=== PATIENT | female | born 1960 | race Caucasian/White ===

== ENCOUNTER → 2019-10-02 | Outpatient (CLI) | payer BC ==
--- NOTE | 2019-10-02 18:38 | Diagnostic Imaging Report ---
EXAMINATION: Magnetic resonance imaging of the right ankle without contrast. DATE: October 02, 2019. COMPARISON: None. HISTORY: 59-year-old female, right ankle pain. Injury. TECHNIQUE: Magnetic Resonance Imaging sequences were performed of the ankle without contrast. [< >] FINDINGS: TENDONS AND LIGAMENTS: The Achilles tendon is unremarkable. The posterior flexor tendons - tibialis posterior, flexor digitorum longus, flexor hallucis longus - are intact. The peroneal tendons - peroneus longus and peroneus brevis - are intact. The anterior extensor tendons - tibialis anterior, extensor hallucis longus and extensor digitorum longus tendons - are intact. The anterior and posterior syndesmotic ligaments are intact. The anterior talofibular, posterior talofibular, calcaneofibular and deltoid ligaments are intact. There are very small focal areas of altered contour of the medial cord of the plantar fascia which likely relate to very small plantar fibromas. One such example is on coronal image 30 measuring 6 x 2 mm in size. There is no tear of the plantar fascia or evidence of active plantar fasciitis. JOINTS: The ankle mortise is intact. The subtalar and visualized joints of the mid-foot are intact. 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 There are minimal adjacent marrow signal changes which may relate to findings of abnormal motion. BONE: There is no acute fracture, bone contusion or evidence of osteonecrosis. The talar dome is intact. BURSAE AND SOFT TISSUES: The bursae and soft tissues surrounding the ankle are unremarkable. IMPRESSION: 1. Intact ankle ligaments and tendons. 2. No acute fracture or bone contusion. 3. Very tiny probable plantar fibromas. The plantar fascia is otherwise intact. 4. 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 Dictated by: Dictated on workstation # [id number]
== END ==
LOC: RAD 14:22
PROVIDERS: ATTEND Orthopaedic Surgery
DX: S93.491A Sprain of other ligament of right ankle, initial encounter (principal)
CPT/HCPCS: 73721

== ENCOUNTER 2020-04-15 06:56 | Emergency (ER) | payer BC, OTHER ==
[~2020-04-15] VITALS: Ht 157.5 cm; Wt 72.6 kg
[2020-04-15] MEDS ORDERED: ASPIRIN 81 MG CHEW (CHILDREN'S ASA) PO ONE (07:15)
[2020-04-15] MEDS ORDERED: NITROGLYCERIN 0.4 MG SL TABS BTL 25'S SL PRN (07:45)
[2020-04-15 08:05] LABS: BASOPHILS % (AUTO) 0 % (0-10); EOSINOPHILS % (AUTO) 0 % (0-10); HEMATOCRIT 39 % (35-52); HEMOGLOBIN 12.9 g/dL (11.5-16.0); LYMPHOCYTES % (AUTO) 17 % (12-44); MEAN CORPUSCULAR HEMOGLOBIN 30 pg (25-34); MEAN CORPUSCULAR HGB CONC 33 g/dL (32-36); MEAN CORPUSCULAR VOLUME 89 fL (80-99); MEAN PLATELET VOLUME 9.5 fL (9.0-12.2); MONOCYTES # (AUTO) 0.4 10^3/uL (0.0-1.0); MONOCYTES % (AUTO) 8 % (0-12); NEUTROPHILS # (AUTO) 4.3 10^3/uL (1.8-7.8); NEUTROPHILS % (AUTO) 75 % (42-75); PLATELET COUNT 239 10^3/uL (130-400); WHITE BLOOD COUNT 5.7 10^3/uL (4.3-11.0)
--- NOTE | 2020-04-15 08:17 | ED Cardiac General ---
History of Present Illness General Chief Complaint: Chest Pain Stated Complaint: CHEST TIGHTNESS,COVID+ Nursing Triage Note: PT BROUGHT IN BY [facility] FROM HOME WITH COMPLAINT OF CHEST TIGHTNESS. PT TESTED POSITIVE ON SATURDAY FOR COVID. STATES SYMPTOMS STARTED . Source: patient, EMS History of Present Illness Date Seen by Provider: Apr 15, 2020 Time Seen by Provider: 07:03 Initial Comments PT ARRIVES VIA EMS FROM HOME PT IS COVID-19 + PT STATES SHE BEGAN GETTING SICK ON WITH COVID-19 SYMPTOMS HAS HAD BODY ACHES, LOSS OF TASTE/SMELL, SLIGHT COUGH, MILD SHORTNESS OF BREATH, FEVER, NAUSEA/VOMITING. PT STATES SHE HAD 2 NEGATIVE TESTS, AND THEN TESTED + FOR COVID-19 ON Saturday04/11/19. STATES SHE WAS ALSO DX WITH PNEUMONIA STATES SHE WAS PRESCRIBED DOXYCYCLINE 2 DAYS AGO, BUT COULD NOT KEEP IT DOWN, SO WAS SWITCHED TO AMOXIL YESTERDAY AND HAS ONLY HAD 1 DOSE. DOES NOT HAVE NAUSEA AT THIS TIME HAS NOT BEEN PRESCRIBED ANY OTHER MEDICATIONS. PT STILL WITH FEVER UP TO 101 PT STATES CHEST PAIN WOKE HER UP AT 0400 THIS AM PAIN IS IN CENTER OF CHEST, DOES NOT RADIATE PAIN /10 AT HOME, 7/10 NOW. NO TREATMENT PRIOR TO ARRIVAL NOTHING WORSENS OR IMPROVES PAIN NO PALPITATIONS NO DIZZINESS OR SYNCOPE NO HISTORY OF SIMILAR. PT DENIES ANY HISTORY OF CARDIAC OR RESPIRATORY PROBLEMS STATES HER ONLY MEDICAL PROBLEMS ARE ALLERGIES AND CHRONIC NECK PAIN PT IS LIFETIME NON-SMOKER, NON-DRINKER. PT STATES HER ALSO HAS HAD COVID-19 AND WAS HOSPITALIZED AT [facility], THEN TRANSFERRED HERE, AND IS NOW AT HOME AND DOING BETTER. NTG SL AIRCRAFT INSTRUMENT ENGINEER: No ASA po AIRCRAFT INSTRUMENT ENGINEER: No PCP: GLORIA DE LA GARZA / DR. ARROYO AT [facility]. Allergies and Home Medications Allergies Coded Allergies: No Known Drug Allergies (Unverified , 09/29/12) Home Medications Azithromycin 500 Mg Tablet, 500 MG PO DAILY Prescribed by: ADALID NAM on 04/15/20 124 Cefdinir 300 Mg Capsule, 300 MG PO BID Prescribed by: ADALID NAM on 04/15/20 124 Dexamethasone 6 Mg Tablet, 6 MG PO DAILY Prescribed by: ADALID NAM on 04/15/20 124 Famotidine 40 Mg Tablet, 40 MG PO DAILY Prescribed by: ADALID NAM on 04/15/20 1247 Ondansetron 8 Mg Tab.rapdis, 8 MG PO Q6H Prescribed by: ADALID NAM on 04/15/20 1247 Patient Home Medication List Home Medication List Reviewed: Yes Review of Systems Review of Systems Constitutional: see HPI, fever EENTM: See HPI Respiratory: See HPI Cardiovascular: See HPI, Chest Pain; Denies Edema, Denies Irregular Heart Rate, Denies Lightheadedness, Denies Palpitations, Denies Syncope Gastrointestinal: See HPI; Denies Abdominal Pain; Nausea, Poor Appetite, Vomiting Genitourinary: No Symptoms Reported Musculoskeletal: see HPI (BODY ACHES) Skin: no symptoms reported Psychiatric/Neurological: No Symptoms Reported Endocrine: No Symptoms Reported Hematologic/Lymphatic: No Symptoms Reported Past Uxjsauz-Xxnigy-Owkybd Hx Past Med/Social Hx: Reviewed and Corrections made Patient Social History Alcohol Use: Denies Use Recreational Drug Use: No Smoking Status: Never a Smoker Recent Foreign Travel: No Contact w/Someone Who Travel: No Recent Infectious Disease Expo: No Recent Hopitalizations: No Physical Abuse: No Sexual Abuse: No Mistreated: No Fear: No Immunizations Up To Date Tetanus Booster (TDap): Unknown PED Vaccines UTD: Yes Seasonal Allergies Seasonal Allergies: Yes Past Medical History Surgeries: Yes (BILATERAL BREAST REDUCTION; RIGHT SHOULDER SURGERY) Breast, Gallbladder, Orthopedic, Tubal Ligation Respiratory: No Cardiac: No Neurological: No RN IMMUNOLOGY History: Tubal Ligation, Menopausal Genitourinary: No Gastrointestinal: No Musculoskeletal: Yes (CHRONIC NECK PAIN; RIGHT SHOULDER SURGERY) Degenerate Disk Disease Endocrine: No HEENT: No Cancer: No Psychosocial: No Integumentary: No Blood Disorders: No Physical Exam Vital Signs Vital Signs - First Documented 04/15/20 04/15/20 07:10 13:54 Temp 36.8 Pulse 79 Resp 14 B/P (MAP) 128/73 (91) Pulse Ox 98 O2 Delivery Room Air Capillary Refill : Less Than 3 Seconds Height, Weight, BMI Height: '" Weight: lbs. oz. kg; 29.00 BMI Method: General Appearance: No Apparent Distress, WD/WN, Other (DOES NOT APPEAR ACUTELY ILL OR TO BE IN ANY DISCOMFORT OR DISTRESS) HEENT: PERRL/EOMI, Normal ENT Inspection Neck: Full Range of Motion, Normal Inspection, Non Tender, Supple; No Carotid Bruit, No JVD Respiratory: Chest Non Tender, Normal Breath Sounds (BUT DIMINISHED IN BASES), No Accessory Muscle Use, No Respiratory Distress Cardiovascular: Regular Rate, Rhythm, No Edema, No JVD, No Murmur, Normal Peripheral Pulses Gastrointestinal: Non Tender, Soft Extremity: Normal Capillary Refill, Normal Inspection, Normal Range of Motion, Non Tender, No Calf Tenderness, No Pedal Edema Neurologic/Psychiatric: Alert, Oriented x3, No Motor/Sensory Deficits, Normal Mood/Affect, cutter operator tile II-XII Norm as Tested Skin: Normal Color, Warm/Dry Focused Exam Lactate Level 04/15/20 07:44: Lactic Acid Level 0.76 Lactic Acid Level Laboratory Tests Test 04/15/20 07:44 Lactic Acid Level 0.76 MMOL/L (0.50-2.00) Progress/Results/Core Measures Results/Orders Lab Results Laboratory Tests Test 04/15/20 07:44 04/15/20 11:10 04/15/20 11:57 Range/Units White Blood Count 5.7 4.3-11.0 10^3/uL Red Blood Count 4.32 3.80-5.11 10^6/uL Hemoglobin 12.9 11.5-16.0 g/dL Hematocrit 39 35-52 % Mean Corpuscular Volume 89 80-99 fL Mean Corpuscular Hemoglobin 30 25-34 pg Mean Corpuscular Hemoglobin Concent 33 32-36 g/dL Red Cell Distribution Width 12.2 10.0-14.5 % Platelet Count 239 130-400 10^3/uL Mean Platelet Volume 9.5 9.0-12.2 fL Immature Granulocyte % (Auto) 1 % Neutrophils (%) (Auto) 75 42-75 % Lymphocytes (%) (Auto) 17 12-44 % Monocytes (%) (Auto) 8 0-12 % Eosinophils (%) (Auto) 0 0-10 % Basophils (%) (Auto) 0 0-10 % Neutrophils # (Auto) 4.3 1.8-7.8 10^3/uL Lymphocytes # (Auto) 1.0 1.0-4.0 10^3/uL Monocytes # (Auto) 0.4 0.0-1.0 10^3/uL Eosinophils # (Auto) 0.0 0.0-0.3 10^3/uL Basophils # (Auto) 0.0 0.0-0.1 10^3/uL Immature Granulocyte # (Auto) 0.0 0.0-0.1 10^3/uL Erythrocyte Sedimentation Rate 31 H 0-30 MM/HR Prothrombin Time 14.0 12.2-14.7 SEC INR Comment 1.0 0.8-1.4 Activated Partial Thromboplast Time 29 24-35 SEC D-Dimer 0.55 H 0.00-0.49 UG/ML Sodium Level 138 135-145 MMOL/L Potassium Level 3.8 3.6-5.0 MMOL/L Chloride Level 104 98-107 MMOL/L Carbon Dioxide Level 23 21-32 MMOL/L Anion Gap 11 5-14 MMOL/L Blood Urea Nitrogen 12 7-18 MG/DL Creatinine 0.70 0.60-1.30 MG/DL Estimat Glomerular Filtration Rate > 60 BUN/Creatinine Ratio 17 Glucose Level 90 70-105 MG/DL Lactic Acid Level 0.76 0.50-2.00 MMOL/L Calcium Level 8.4 L 8.5-10.1 MG/DL Corrected Calcium 8.6 8.5-10.1 MG/DL Magnesium Level 2.0 1.6-2.4 MG/DL Total Bilirubin 0.4 0.1-1.0 MG/DL Aspartate Amino Transf (AST/SGOT) 42 H 5-34 U/L Alanine Aminotransferase (ALT/SGPT) 28 0-55 U/L Alkaline Phosphatase 50 40-136 U/L Lactate Dehydrogenase 279 H 125-220 U/L Total Creatine Kinase 49 29-168 U/L Creatine Kinase MB 0.6 <6.6 NG/ML Myoglobin 53.4 10.0-92.0 NG/ML Troponin I < 0.028 < 0.028 <0.028 NG/ML C-Reactive Protein High Sensitivity 2.49 H 0.00-0.50 MG/DL B-Type Natriuretic Peptide < 10.0 <100.0 PG/ML Total Protein 6.3 L 6.4-8.2 GM/DL Albumin 3.7 3.2-4.5 GM/DL Amylase Level 71 25-125 U/L Lipase 81 H 8-78 U/L Procalcitonin 0.02 <0.10 NG/ML Urine Color YELLOW Urine Clarity CLEAR Urine pH 6.0 5-9 Urine Specific Steen <=1.005 1.016-1.022 Urine Protein NEGATIVE NEGATIVE Urine Glucose (UA) NEGATIVE NEGATIVE Urine Ketones 1+ H NEGATIVE Urine Nitrite NEGATIVE NEGATIVE Urine Bilirubin NEGATIVE NEGATIVE Urine Urobilinogen 0.2 < = 1.0 MG/DL Urine Leukocyte Esterase NEGATIVE NEGATIVE Urine RBC (Auto) NEGATIVE NEGATIVE Urine RBC RARE /HPF Urine WBC RARE /HPF Urine Squamous Epithelial Cells 2-5 /HPF Urine Crystals NONE /LPF Urine Bacteria NEGATIVE /HPF Urine Casts NONE /LPF Urine Mucus NEGATIVE /LPF Urine Culture Indicated NO Micro Results Microbiology 04/15/20 Blood Culture - Preliminary, Resulted No growth 04/15/20 Influenza Types A,B Antigen (NATTY) - Final, Complete 04/15/20 Blood Culture - Preliminary, Resulted No growth My Orders Orders - ADALID NAM DO Ed Iv/Invasive Line Start (04/15/20 07:03) Ekg Tracing (04/15/20 07:03) O2 (04/15/20 07:03) Monitor-Rhythm Ecg Trace Only (04/15/20 07:03) Chest 1 View, Ap/Pa Only (04/15/20 07:03) Amylase (04/15/20 07:03) BNP (04/15/20 07:03) Cbc With Automated Diff (04/15/20 07:03) Comprehensive Metabolic Panel (04/15/20 07:03) Creatine Kinase (04/15/20 07:03) Creatine Kinase Mb (04/15/20 07:03) Hs C Reactive Protein (04/15/20 07:03) Fibrin Degradation Products (04/15/20 07:03) Lactic Acid Analyzer (04/15/20 07:03) Lipase (04/15/20 07:03) Magnesium (04/15/20 07:03) Procalcitonin (Pct) (04/15/20 07:03) Protime With Inr (04/15/20 07:03) Partial Thromboplastin Time (04/15/20 07:03) Ua Culture If Indicated (04/15/20 07:03) Influenza A And B Antigens (04/15/20 07:03) Erythrocyte Sedimentation Rate (04/15/20 07:03) Myoglobin Serum (04/15/20 07:03) Troponin I (04/15/20 07:03) LDH (04/15/20 07:03) Aspirin Chewable Tablet (Baby Aspirin Ch (04/15/20 07:15) Nitroglycerin 0.4 Mg Btl 25's (Nitrostat (04/15/20 07:45) Dexamethasone Injection (Decadron Inje (04/15/20 07:45) Blood Culture (04/15/20 07:43) Ct Angio Chest W (04/15/20 08:29) Ceftriaxone For Iv Use (Rocephin For I (04/15/20 08:30) Azithromycin Injection (Zithromax Inject (04/15/20 08:30) Iohexol Injection (Omnipaque 350 Mg/Ml 1 (04/15/20 09:00) Received Contrast (Hold Metformin- Contr (04/15/20 09:00) Sodium Chloride Flush (Catheter Flush Sy (04/15/20 09:00) Ns (Ivpb) (Sodium Chloride 0.9% Ivpb Bag (04/15/20 09:00) Ondansetron Injection (Zofran Injectio (04/15/20 09:30) Enoxaparin Injection (Lovenox Injection) (04/15/20 10:30) Ed Iv/Invasive Line Start (04/15/20 10:25) Ns Iv 1000 Ml (Sodium Chloride 0.9%) (04/15/20 10:30) Ekg Tracing (04/15/20 10:59) Troponin I (04/15/20 10:59) Medications Given in ED Vital Signs/I&O 04/15/20 04/15/20 07:10 13:54 Temp 36.8 Pulse 79 80 Resp 14 18 B/P (MAP) 128/73 (91) 110/66 Pulse Ox 98 98 O2 Delivery Room Air 2 Blood Pressure Mean: 91 Progress Progress Note : Progress Note PLACED IN ISOLATION ROOM PPE WORN AT ALL TIMES GIVEN ASA, NTG, DECADRON, ROCEPHIN, ZITHROMAX PT IS PAIN FREE AT DISMISSAL. O2 SAT 99% ON ROOM AIR, OTHER VITALS STABLE. Initial ECG Impression Date: Apr 15, 2020 Initial ECG Impression Time: 07:30 Initial ECG Rate: 75 Initial ECG Rhythm: Normal Sinus Initial ECG Impression: Nonspecific Changes Diagnostic Imaging Comments CXR--PER RADIOLOGIST REPORT AT 0828 IMPRESSION: 1. Minimal interstitial opacities within the lung bases increased with pulmonary edema or atypical infection given history of COVID 19. CT CHEST ANGIOGRAM--PER RADIOLOGIST REPORT AT 1008 CT CHEST. 1. Multifocal bilateral lung consolidation compatible with multifocal pneumonia and provided history of Covid 19 infection although this is not a specific appearance. 2. No identified pulmonary embolus. Reviewed: Reviewed by Me Departure Communication (Admissions) 1037--ATTEMPTING TO CONTACT DR. LI, HOSPITALIST. MESSAGE LEFT ON CELL 1051--SPOKE WITH DR. MARLEY. DOES NOT ADVISE ADMIT, ADVISES TO DO 3 HOUR REPEAT TROPONIN AND IF NEGATIVE, MAY SEND PT HOME 1211--ATTEMPTING TO CONTACT DR. QUIÑONES, METER REPAIR SHOP SUPERVISOR AIRPLANE GAS TANK LINER ASSEMBLER. MESSAGE LEFT ON CELL. 1231--ATTEMPTING TO CONTACT DR. QUIÑONES, MESSAGE LEFT ON CELL. 1239--SPOKE WITH DR. QUIÑONES, HE ADVISES THAT IF PT IS PAIN-FREE AND 3 HOUR TR OPONIN IS NEGATIVE, MAY SEND HOME AND FOLLOW UP WITH DR. PATEL OR DR. STEVENS, FOR POSSIBLE OUTPATIENT NUCLEAR STRESS TEST. Impression Primary Impression: Chest pain Additional Impression: Pneumonia due to COVID-19 virus Disposition: HOME, SELF-CARE Condition: Improved Departure-Patient Inst. Referrals: ISHAN ARROYO MD (PCP) Primary Care Physician PAN MERCADO MD (Family) Primary Care Physician MAY STEVENS [facility] ANTONIO PATEL MD Patient Instructions: Chest Pain (DC), Preventing the Spread of an Infectious Disease, Coronavirus Disease 2019 (COVID-19) ED, Pneumonia, Adult ED Add. Discharge Instructions: LOTS OF CLEAR LIQUIDS NO SPICY, GREASY/HIGH FAT OR ACIDIC FOOD OR DRINK FOLLOW UP WITH CARDIOLOGY--DR. STEVENS OR DR. PATEL--NEXT WEEK FOR FURTHER CARE. CALL TODAY OR SATURDAY TO SCHEDULE APPOINTMENT RETURN TO ER IF YOUR SYMPTOMS WORSEN All discharge instructions reviewed with patient and/or family. Voiced understanding. Scripts Famotidine (Pepcid) 40 Mg Tablet 40 MG PO DAILY, #20 TAB Prov: ADALID NAM DO 04/15/20 Ondansetron (Ondansetron Odt) 8 Mg Tab.rapdis 8 MG PO Q6H, #20 TAB Prov: ADALID NAM DO 04/15/20 Azithromycin (Zithromax) 500 Mg Tablet 500 MG PO DAILY for 5 Days, #5 TAB Prov: ADALID NAM DO 04/15/20 Cefdinir (Cefdinir) 300 Mg Capsule 300 MG PO BID, #20 CAP Prov: ADALID NAM DO 04/15/20 Dexamethasone (Decadron) 6 Mg Tablet 6 MG PO DAILY, #10 TAB Prov: ADALID NAM DO 04/15/20 ADALID NAM DO Apr 15, 2020 08:17
[2020-04-15 08:18] LABS: ALBUMIN 3.7 GM/DL (3.2-4.5); CHLORIDE 104 MMOL/L (98-107); POTASSIUM 3.8 MMOL/L (3.6-5.0); SODIUM 138 MMOL/L (135-145)
[2020-04-15 08:19] LABS: AMYLASE 71 U/L (25-125); CALCIUM 8.4 MG/DL (8.5-10.1); FIBRIN DEGRADATION PRODUCTS 0.55 UG/ML (0.00-0.49)
[2020-04-15 08:20] LABS: GLUCOSE 90 MG/DL (70-105); TOTAL PROTEIN 6.3 GM/DL (6.4-8.2)
[2020-04-15 08:21] LABS: CARBON DIOXIDE 23 MMOL/L (21-32)
[2020-04-15 08:22] LABS: BILIRUBIN,TOTAL 0.4 MG/DL (0.1-1.0)
[2020-04-15 08:23] LABS: ALKALINE PHOSPHATASE 50 U/L (40-136)
[2020-04-15 08:24] LABS: GFR ESTIMATED > 60
[2020-04-15 08:25] LABS: BUN/CREATININE RATIO 17
--- NOTE | 2020-04-15 08:25 | Diagnostic Imaging Report ---
EXAMINATION: Chest 1 view HISTORY: Chest pain, COVID positive. COMPARISON: None available. FINDINGS: Heart size and pulmonary vasculature are normal. There are minimal interstitial opacities within both lung bases. No pleural effusion or pneumothorax. The osseous structures are intact. IMPRESSION: 1. Minimal interstitial opacities within the lung bases increased with pulmonary edema or atypical infection given history of COVID 19. Report was faxed to [facility] by fredis at 8:24am. Dictated by: Dictated on workstation # [id number]
[2020-04-15 08:27] LABS: ALANINE AMINOTRANSFERASE 28 U/L (0-55)
[2020-04-15 08:28] LABS: CREATINE KINASE 49 U/L (29-168); LIPASE 81 U/L (8-78)
[2020-04-15] MEDS ORDERED: AZITHROMYCIN INJECTION 500 MG in NS (IVPB) 250 ML IV ONE (08:30)
[2020-04-15] MEDS ORDERED: cefTRIAXone FOR IV USE 1,000 MG in WATER (STERILE) FOR INJECTION 10 ML IV ONE (08:30)
[2020-04-15 08:31] LABS: ERYTHROCYTE SEDIMENTATION RATE 31 MM/HR (0-30)
[2020-04-15 08:35] LABS: CREATINE KINASE MB 0.6 NG/ML (<6.6)
[2020-04-15] MEDS ORDERED: CATHETER FLUSH 10 ML SYR IV PRN (09:00)
[2020-04-15] MEDS ORDERED: NS 100 ML (IVPB) BAG IV ONE (09:00)
[2020-04-15] MEDS ORDERED: IOHEXOL 350 MG/ML 100 ML (OMNIPAQUE 350) VIAL IV ONE (09:00)
[2020-04-15] MEDS ORDERED: HOLD METFORMIN - RECEIVED CONTRAST 20 ML VIAL IV SCH (09:00)
[2020-04-15] MEDS ORDERED: ONDANSETRON 4 MG/2 ML (SDV) Z0FRAN IVP ONE (09:30)
--- NOTE | 2020-04-15 09:59 | Diagnostic Imaging Report ---
PROCEDURE: CT angiography of the chest with contrast. TECHNIQUE: Multiple contiguous axial images were obtained through the chest after uneventful bolus administration of intravenous contrast. 3D reconstructed CTA MIP acquisitions were also performed. Auto Exposure Controls were utilized during the CT exam to meet ALARA standards for radiation dose reduction. DATE: April 15, 2020. COMPARISON: Chest radiograph April 15, 2020. INDICATION: 59-year-old female, Covid 19 positive. Chest pain. FINDINGS: There is multifocal patchy bilateral lung consolidation with most pronounced areas of consolidation in the right and left lower lobes. There is no identified pulmonary nodule. There is no lung mass. There is no pneumothorax. There is no pleural effusion. The central airways are patent. There is no identified pulmonary embolus. The heart is not enlarged. There is no pericardial effusion. There is no identified abnormally enlarged mediastinal, hilar, or axillary lymph node which meets CT size criteria for adenopathy. The patient is status post cholecystectomy. There is contrast opacification in the urinary collecting systems which may relate to recent administration of contrast. Recommend correlation. There is no identified acute bony abnormality. IMPRESSION: CT CHEST. 1. Multifocal bilateral lung consolidation compatible with multifocal pneumonia and provided history of Covid 19 infection although this is not a specific appearance. 2. No identified pulmonary embolus. Dictated by: Dictated on workstation # [id number]
[2020-04-15] MEDS ORDERED: ENOXAPARIN 80 MG/0.8 ML (LOVENOX) SYR SC ONE (10:30)
[2020-04-15] MEDS ORDERED: NS IV 1000 ML 1,000 ML IV SCH (10:30)
[2020-04-15 12:09] LABS: BILIRUBIN,URINE NEGATIVE (NEGATIVE); CLARITY,URINE CLEAR; COLOR,URINE YELLOW; GLUCOSE, URINE (UA) NEGATIVE (NEGATIVE); KETONES,URINE 1+ (NEGATIVE); LEUKOCYTE ESTERASE ,URINE NEGATIVE (NEGATIVE); NITRITE,URINE NEGATIVE (NEGATIVE); PROTEIN,URINE NEGATIVE (NEGATIVE)
[2020-04-15 12:17] LABS: BACTERIA,URINE NEGATIVE /HPF; RBC,URINE RARE /HPF; WBC,URINE RARE /HPF
[2020-04-15] MEDS ORDERED: DEXA6TAB6 PO (12:47)
[2020-04-15] MEDS ORDERED: CEFD300C3 PO (12:47)
[2020-04-15] MEDS ORDERED: FAMO40TA72 PO (12:47)
[2020-04-15] MEDS ORDERED: ONDA8TAB13 PO (12:47)
[2020-04-15] MEDS ORDERED: AZIT500T PO (12:47)
[2020-04-15 13:54] VITALS: BP 110/66
== END 2020-04-15 13:54 | disposition home or self-care (01) ==
LOC: EDUNIT# 06:56 → ER 06:57
DX: U07.1 COVID-19 (principal); J12.82 Pneumonia due to coronavirus disease 2019
CPT/HCPCS: 36415; 71045; 71275; 80053; 81000; 82150; 82550; 82553; 83605; 83615; 83690; 83735; 83874; 83880; 84145; 84484; 85025; 85379; 85610; 85652; 85730; 86141; 87040; 87804; 93005; 93041

== ENCOUNTER → 2020-07-29 | Outpatient (CLI) | payer BC ==
[~2020-07-29] MED LIST: AZIT500T PO; CEFD300C3 PO; DEXA6TAB6 PO; FAMO40TA72 PO; ONDA8TAB13 PO
== END ==
LOC: CARD 13:10
PROVIDERS: ATTEND Internal Medicine Cardiovascular Disease
DX: I07.1 Rheumatic tricuspid insufficiency (principal)
CPT/HCPCS: 93306

== ENCOUNTER → 2020-09-13 | Outpatient (CLI) | payer BC ==
[~2020-09-13] MED LIST changes: +CATHETER FLUSH 10 ML SYR IV PRN; +REGADENOSON 0.4 MG/5 ML SYR (LEXISCAN) IV ONE
[2020-09-13 12:49] VITALS: BP 175/95
--- NOTE | 2020-09-13 16:27 | STRESS TEST ---
DATE OF SERVICE: 09/13/2020 RESTING AND POST REGADENOSON TECHNETIUM-99M TETROFOSMIN SPECT CT IMAGING ORDERING PHYSICIAN: Marquita Vigil APRN PRIMARY PHYSICIAN: Dr. Collins. OTHER PHYSICIAN: Dr. Candie Lewis. CLINICAL DIAGNOSIS: Chest discomfort. Baseline images were carried out after injection of 10.56 mCi of technetium-99m Tetrofosmin. This was followed by 0.4 mg regadenoson and 31.3 mCi of technetium-99m Tetrofosmin for stress imaging. The electrocardiogram showed sinus rhythm at baseline. It did not change significantly with the regadenoson infusion. The patient had a feeling of somewhat rapid heartbeat and a headache following regadenoson infusion, which resolved in a few minutes. Review of images at rest and following stress does not indicate any significant perfusion defects consistent with myocardial ischemia or infarction. Gated images show normal global left ventricular systolic function with normal regional wall motion. Left ventricular ejection fraction is calculated to be 71%. Left ventricular end diastolic volume is 36 mL. TID is absent (1.14). CONCLUSIONS: 1. No evidence of any significant myocardial ischemia or infarction on this study. 2. Normal regional wall motion. 3. Normal global left ventricular systolic function with a calculated ejection fraction of 71%. Job ID: [id number] DocumentID: [id number] Dictated Date: 09/13/2020 15:47:08 Land Surveyor Assistant Date: 09/13/2020 16:26:38 Dictated By: MAY STEVENS MD, MA, FACP, FACC,
== END ==
LOC: CARD 11:25
PROVIDERS: ATTEND Nurse Practitioner Family
DX: R07.89 Other chest pain (principal)
CPT/HCPCS: 78452; 93017; A9502

== ENCOUNTER 2020-11-04 10:53 | Outpatient (CLI) | payer BC ==
[~2020-11-04 10:53] MED LIST changes: -CATHETER FLUSH 10 ML SYR IV PRN; -REGADENOSON 0.4 MG/5 ML SYR (LEXISCAN) IV ONE
== END 2020-11-04 11:20 ==
LOC: SLEEP 10:53
PROVIDERS: ATTEND Nurse Practitioner
DX: G47.33 Obstructive sleep apnea (adult) (pediatric) (principal)
CPT/HCPCS: G0399

== ENCOUNTER → 2021-10-23 | Outpatient (CLI) | payer BC | LOC: CARD 11:00 | PROVIDERS: ATTEND Nurse Practitioner Family | DX: I27.20 Pulmonary hypertension, unspecified (principal) | CPT/HCPCS: 93306 ==